=== PATIENT | female | born 1995 ===

== ENCOUNTER 2020-10-26 10:05 | Day surgery (SDC) | payer OTHER ==
[~2020-10-26 10:05] MED LIST: PROGESTERON PO
== END 2020-10-26 22:11 | disposition home or self-care (01) ==
LOC: CIR.AMB 10:05
PROVIDERS: ATTEND Student in an Organized Health Care Education/Training Program
DX: N93.8 Other specified abnormal uterine and vaginal bleeding (principal); Z20.822 Contact with and (suspected) exposure to COVID-19